=== PATIENT | female | born 1975 | race Caucasian/White ===

== ENCOUNTER 2016-06-24 11:59 | Outpatient (CLI) ==
[2015-08-26 19:31] VITALS: BMI 24.7
[2016-06-24 13:15] LABS: BASOPHILS # (AUTO) 0.1 K/uL (0-0.2); BASOPHILS % (AUTO) 0.7 % (0.0-3.0); EOSINOPHILS # (AUTO) 0.2 K/ul (0.0-0.7); EOSINOPHILS % (AUTO) 2.2 % (0.0-7.0); HEMATOCRIT 39.1 % (37.0-47.0); HEMOGLOBIN 13.7 g/dl (12.0-16.0); IMMATURE GRANULOCYTE % (AUTO) 0.2 % (0.0-5.0); LYMPHOCYTES # (AUTO) 1.7 K/uL (0.60-3.4); LYMPHOCYTES % (AUTO) 19.1 (10.0-50.0); MEAN CORPUSCULAR HEMOGLOBIN 31.8 pg (27.0-31.0); MEAN CORPUSCULAR VOLUME 90.7 fl (81.0-99.0); MONOCYTES # (AUTO) 0.5 K/uL (0.4-2.0); MONOCYTES % (AUTO) 5.3 (0-10); NEUTROPHILS # (AUTO) 6.4 K/ul (2.0-6.9); NEUTROPHILS % (AUTO) 72.5; PLATELET COUNT 159 10^3/uL (140-440); RED BLOOD COUNT 4.31 10^6/ul (4.20-5.40); WHITE BLOOD COUNT 8.76 K/ul (4.6-10.2)
[2016-06-24 13:51] LABS: ALBUMIN 4.1 g/dL (3.4-5.0); ALBUMIN/GLOBULIN RATIO 1.32; ANION GAP 14.2; BILIRUBIN,TOTAL 0.29 mg/dL (0.00-1.20); BUN/CREATININE RATIO 12.35; CALCIUM 9.6 mg/dL (8.2-10.2); CHOL/HDL RATIO 3.8 (4.5-5.5); CREATININE 0.89 mg/dL (0.60-1.30); POTASSIUM 4.2 mmol/L (3.5-5.10); TOTAL PROTEIN 7.2 g/dL (6.4-8.2)
--- NOTE | 2016-06-25 14:08 | MRI ---
EXAM: Lumbar spine MRI without contrast. HISTORY: Back pain. COMPARISON: CT abdomen and pelvis 11/27/2015. TECHNIQUE: Multiplanar, multisequence MR images were acquired of the lumbar spine without contrast. FINDINGS: Five lumbar-type vertebra are present. There is minor lumbar levoscoliosis centered at L3 -4 and there is 2 mm rightward translation of L5 with respect L4. Alignment on the sagittal section s is near anatomic. The lumbar vertebra are normal in height and intrinsic bone marrow signal. Ther e is minor lumbar ventral spondylosis with reactive marrow changes along the anterior superior endpl ate of L3. Conus medullaris ends at L1 has normal signal intensity. The visualized liver, spleen and kidneys are unremarkable. T12-L1: The intervertebral disc is normal. L1-2: The intervertebral disc is normal. L2-3: The intervertebral disc is normal. There is mild bilateral hypertrophic facet arthropathy an d ligamentum flavum hypertrophy and a tiny subchondral cyst is present along the posterior left face t joint. There is no central canal stenosis or foraminal stenosis. L3-4: The intervertebral disc is normal. There is mild bilateral facet arthropathy and ligamentum flavum hypertrophy. L4-5: The intervertebral disc is normal. There is mild to moderate bilateral hypertrophic facet ar thropathy and ligamentum flavum hypertrophy. This narrows the posterolateral thecal sac bilaterally and causes minor bilateral foraminal stenosis. L5-S1: There is a minimal posterior disc bulge and mild bilateral facet arthropathy without foramin al stenosis. IMPRESSION: 1. Mild and mild to moderate lumbar facet arthropathy L2-3 to L5-S1. 2. No lumbar disc herniations, pars interarticularis defects or spinal stenosis.
== END 2016-06-24 12:00 | disposition home or self-care (01) ==
LOC: RAD 11:59
PROVIDERS: ATTEND Nurse Practitioner Family
DX: M54.9 Dorsalgia, unspecified (principal); F32.9 Major depressive disorder, single episode, unspecified; Z00.00 Encounter for general adult medical examination without abnormal findings; Z72.0 Tobacco use
CPT/HCPCS: 36415; 80053; 80061; 84443; 85025

== ENCOUNTER 2016-08-22 08:17 | Emergency (ER) ==
[2016-08-22 08:17] VITALS: BMI 24.7
[2016-08-22 08:21] VITALS: BP 116/77; TEMP 98.2
--- NOTE | 2016-08-22 08:49 | ED.PDOC ---
General ED Provider: Dr. THO MULLER JR Chief Complaint: Rash Stated Complaint: SEEN AT CLINIC AND WAS TREATED BUT NO LITTLE TO NO IMPROVEMENT. [ End ]2 weeks 98.2 71 20 98% 116/77. TUBAL, BLADDER SLING. [ End ]. anx. Yes: POISON JULY Time Seen by Physician: 08:48 Mode of Arrival: Walk-In Information Source: Patient Exam Limitations: No limitations [facility] [address] Nursing and Triage Documentation Reviewed and Agree: No Review of Systems - Review Of Systems Constitutional: Reports: Malaise Eyes: Reports: Pain Ears, Nose, Mouth, Throat: Reports: No symptoms Respiratory: Reports: No symptoms Cardiac: Reports: No symptoms, Chest pain (itching between breasts) GI: Reports: No symptoms : Reports: No symptoms Musculoskeletal: Reports: No symptoms Skin: Reports: Lesions, Rash (few vesicles red raised areas urticaria) Neurological: Reports: No symptoms Endocrine: Reports: No symptoms Hematologic/Lymphatic: Reports: No symptoms All Other Systems: Other Past Medical History - Past Medical History Endocrine: Reports: None Cardiovascular: Reports: None Respiratory: Reports: None Hematological: Reports: None Gastrointestinal: Reports: None Genitourinary: Reports: None Neuro/Psych: Reports: Anxiety Musculoskeletal: Reports: None Cancer: Reports: None Last Menstrual Period: N/A - Surgical History General Surgical History: Reports: Tubal ligation (TUBAL, BLADDER SLING) - Family History Family History: Reports: Unknown - Social History Smoking Status: Current every day smoker, Light tobacco smoker Hx Substance Use: No Alcohol Screening: None - Immunizations Tetanus Shot up to Date: Yes Physical Exam - Physical Exam Appearance: Well-appearing Pain Distress: Moderate Eyes: REINA, EOMI, Conjunctiva clear ENT: Ears normal, Nose normal, Oropharynx normal Neck: Supple Respiratory: Airway patent, Breath sounds clear, Breath sounds equal, Respirations nonlabored Cardiovascular: RRR, Pulses normal, No rub, No murmur GI/: Soft, Nontender, No masses, Bowel sounds normal, No Organomegaly Musculoskeletal: Normal strength, ROM intact, No edema, No calf tenderness Skin: Warm, Dry (red rash, most obvious at and below waistline, but also arms face chest and some on legs) Neurological: Sensation intact, Motor intact, Reflexes intact, Cranial nerves intact, Alert, Oriented Psychiatric: Affect appropriate, Mood appropriate Critical Care Note - Critical Care Note Total Time (mins): 0 Course - Course Orders, Labs, Meds: Orders Category Date Time Status Methylprednisolone Sod Succ/Pf [Solu-Medrol 125 mg] MEDS 08/22/16 09:02 Discontinued 125 mg IM ONCE STA Medications Discontinued Medications Generic Name Dose Route Start Last Admin Trade Name Reji PRN Reason Stop Dose Admin Methylprednisolone Sodium Succinate 125 mg 08/22/16 09:02 08/22/16 09:13 Solu-Medrol 125 Mg IM 08/22/16 09:03 125 mg ONCE STA Administration Vital Signs: Temp Pulse Resp BP Pulse Ox 08/22/16 08:17 98.2 F 71 20 116/77 98 Departure - Departure Time of Disposition: 09:03 Disposition: HOME SELF-CARE Discharge Problem: Rhus dermatitis Instructions: Poison July (ED), Cold Compress or Soak (ED) Condition: Good Pt referred to PMD for follow-up: Yes Additional Instructions: repeat steroid injection avoid sugar and fried food with steroids(affects hunger) may begin prednisone taper if rash returns recheck PMD one week if not resolved may use Benadryl for itching(causes drowsiness) Prescriptions: Diphenhydramine HCl [Benadryl] 25 mg PO QID #30 capsule Prednisone 20 mg PO DIRECTED #50 tablet Allergies/Adverse Reactions: Allergies codeine Allergy (Verified 08/22/16 08:23) Home Medications: Ambulatory Orders Sertraline HCl [Zoloft] 150 mg PO DAILY 08/26/15 Diphenhydramine HCl [Benadryl] 25 mg PO QID #30 capsule 08/22/16 Prednisone 20 mg PO DIRECTED #50 tablet 08/22/16
[2016-08-22] MEDS ORDERED: SOLU-MEDROL 125 MG IM STA (09:02)
== END 2016-08-22 09:25 | disposition home or self-care (01) ==
LOC: ED 08:17
DX: L23.7 Allergic contact dermatitis due to plants, except food (principal); F17.210 Nicotine dependence, cigarettes, uncomplicated
CPT/HCPCS: 96372; 99282

== ENCOUNTER 2017-03-04 16:14 | Outpatient (CLI) | END 2017-03-04 16:15 | disposition home or self-care (01) | LOC: LAB 16:14 | PROVIDERS: ATTEND Emergency Medicine | DX: J10.1 Influenza due to other identified influenza virus with other respiratory manifestations (principal) | CPT/HCPCS: 87502; 87651 ==

== ENCOUNTER 2017-06-09 14:14 | Inpatient (IN) ==
[2017-06-09] MEDS ORDERED: SODIUM CHLORIDE 1,000 ML IV STA (15:29)
[2017-06-09] MEDS ORDERED: ZOFRAN 4 MG/2 ML IVP STA (15:32)
--- NOTE | 2017-06-09 15:33 | ED.PDOC ---
General ED Provider: Dr. MARY PULIDO Chief Complaint: Nausea/Vomiting Stated Complaint: has been experiencing severe abdominal cramping with bloody watery diarrhea. Hx of Ulcerative Colitis. No recent treatment other than Bentyl and carafate. Extremely thirsty. has been symptomatic for several years. Underwent Colonoscopy 5 yrs ago and dx obtained. No chronic therapy. Has not been on systemic anti inflamatory meds(sulfazaline)or immune modulation therapy(Imuran or methotrexate). Is employed in [employer]. Time Seen by Physician: 14:40 Mode of Arrival: Walk-In Information Source: Patient Exam Limitations: No limitations [facility] T[facility] Documentation Reviewed and Agree: Yes Reviewed sepsis parameters & appropriate labs ordered?: Yes System Inflammatory Response Syndrome: Not Applicable Sepsis Protocol: For patient's 13 years and over: Temp is 96.8 and below OR 101 and greater Pulse >90 BPM Resp >20/minute Acutely Altered Mental Status Are patient's symptoms suggestive of a new infection, such as: -Pneumonia -Skin, Soft Tissue -Endocarditis -UTI -Bone, Joint Infection -Implantable Device -Acute Abdominal Infection -Wound Infection -Meningitis -Blood Stream Catheter Infection -Unknown System Inflammatory Response Syndrome: Not Applicable GI Complaint Exam - Abdominal Pain Complaint/Exam Onset: Sudden Symptoms Are: Still present Timing: Intermittent Initial Severity: Moderate Current Severity: Moderate Location of Pain: RLQ, LLQ, Suprapubic Radiates To: Denies: Chest, Back, Flank Character: Reports: Dull, Aching, Cramping Aggravating: Reports: Food - Vomiting/Diarrhea Complaint/Exam Onset/Duration: 5 days Symptoms Are: Still present Episodes of Diarrhea Over Last 24 Hours: 5 Initial Severity: Moderate Current Severity: Severe Character of Vomiting: Reports: Non-bilious Character of Diarrhea: Reports: Bloody, Watery Aggravating: Reports: Food, Liquids Alleviating: Reports: None Associated Signs and Symptoms: Reports: Hematemesis, Abdominal pain, Cramping Related Surgical History: Reports: None (Colonoscopy) Abdominal Findings: Absent: Pulsatile mass, Rebound tenderness, Peritoneal signs Review of Systems - Review Of Systems Constitutional: Reports: No symptoms Eyes: Reports: No symptoms Ears, Nose, Mouth, Throat: Reports: No symptoms Respiratory: Reports: No symptoms Cardiac: Reports: No symptoms, Lightheadedness GI: Reports: Blood streaked bowels, Diarrhea, Poor fluid intake, Rectal bleeding : Reports: No symptoms Musculoskeletal: Reports: No symptoms Skin: Reports: No symptoms Neurological: Reports: No symptoms Endocrine: Reports: No symptoms Hematologic/Lymphatic: Reports: No symptoms All Other Systems: Reviewed and Negative Past Medical History - Past Medical History Previously Healthy: Yes Endocrine: Reports: None Cardiovascular: Reports: None Respiratory: Reports: None Hematological: Reports: None Gastrointestinal: Reports: None, Other (ulcerative colitis) Genitourinary: Reports: None Neuro/Psych: Reports: Anxiety Musculoskeletal: Reports: None Cancer: Reports: None Last Menstrual Period: now - Surgical History General Surgical History: Reports: Tubal ligation (TUBAL, BLADDER SLING) - Family History Family History: Reports: Unknown - Social History Smoking Status: Current every day smoker, Light tobacco smoker Hx Substance Use: No Alcohol Screening: None Physical Exam - Physical Exam Appearance: Ill-appearing, Well-nourished Ill-appearing: Moderate Pain Distress: Mild Eyes: REINA, EOMI, Conjunctiva clear ENT: Ears normal, Nose normal, Oropharynx normal Respiratory: Airway patent, Breath sounds clear, Breath sounds equal, Respirations nonlabored Cardiovascular: RRR, Pulses normal, No rub, No murmur GI/: Soft, No masses, Bowel sounds normal, No Organomegaly, Tender, Bowel sounds hypoactive Musculoskeletal: Normal strength, ROM intact, No edema, No calf tenderness Skin: Warm, Dry, Normal color Neurological: Sensation intact, Motor intact, Reflexes intact, Cranial nerves intact, Alert, Oriented Psychiatric: Affect appropriate, Mood appropriate, Anxious Critical Care Note - Critical Care Note Total Time (mins): 30 Course - Course Hematology/Chemistry: 06/11/17 04:30 06/11/17 04:30 Orders, Labs, Meds: Lab Review 06/09/17 06/09/17 15:40 15:40 WBC 10.79 H RBC 4.17 L Hgb 13.3 Hct 37.1 MCV 89.0 MCH 31.9 H MCHC 35.8 H RDW Coeff of Yadira 12.2 Plt Count 137 L Immature Gran % (Auto) 0.3 Neut % (Auto) 84.3 Lymph % (Auto) 6.0 L Tift % (Auto) 8.6 Eos % (Auto) 0.4 Baso % (Auto) 0.4 Immature Gran # (Auto) 0.0 Neut # (Auto) 9.1 H Lymph # (Auto) 0.7 Tift # (Auto) 0.9 Eos # (Auto) 0.0 Baso # (Auto) 0.0 Sodium 138 Potassium 3.1 L Chloride 103 Carbon Dioxide 22 Anion Gap 16.1 BUN 8 Creatinine 0.74 Estimated GFR (MDRD) 85.00 BUN/Creatinine Ratio 10.81 Glucose 79 Calcium 8.9 Total Bilirubin 0.5 AST 15 ALT 13 Alkaline Phosphatase 53 Total Protein 6.7 Albumin 3.4 Globulin 3.3 Albumin/Globulin Ratio 1.03 Orders Category Date Time Status ADMIT PATIENT INPATIENT .TO [facility] (NON-MONITORED ADMISSION 06/09/17 17: 42 Completed BED) ACTIVITY .Up ad [place] CARE 06/09/17 17:32 Active GIVE HS SNACK 2100 CARE 06/09/17 17:34 Active INTAKE & OUTPUT Q8HR CARE 06/09/17 17:31 Active NPO REMINDER: IMAGING ONCE CARE 06/09/17 15:31 Completed VITAL SIGNS Q8HR CARE 06/09/17 17:32 Completed HS SNACK DIETARY 06/09/17 Dinner Completed IV [ED IV/MEDIPORT/POWERPORT] .ONCE EMERGENCY 06/09/17 15:30 Active BASIC METABOLIC PANEL DAILY@0600 LAB 06/10/17 06:00 Completed BASIC METABOLIC PANEL DAILY@0600 LAB 06/11/17 04:30 Completed CBC W/ AUTO DIFF DAILY@0600 LAB 06/10/17 06:00 Completed CBC W/ AUTO DIFF DAILY@0600 LAB 06/11/17 04:30 Completed CBC W/ AUTO DIFF Stat LAB 06/09/17 15:40 Completed CMP [COMPREHENSIVE METABOLIC PANEL] Stat LAB 06/09/17 15:40 Completed 0.9 % Sodium Chloride [Saline Flush] MEDS 06/09/17 15:31 Discontinued 1 syr IVF PRN PRN Methylprednisolone Sod Succ/Pf [Solu-Medrol 125 mg] MEDS 06/09/17 17:29 Discontinued 125 mg IM ONCE STA Metronidazole/Sodium Chloride [Flagyl 500 mg/100 ml] MEDS 06/09/17 17:28 Discontinued 500 mg Premix 100 ml Ns 1 bag IV ONCE Ondansetron HCl/Pf [Zofran 4 mg/2 ml] MEDS 06/09/17 15:32 Discontinued 4 mg IVP ONCE STA Potassium Chloride [Potassium Chloride Premix Run] 10 MEDS 06/09/17 17:30 Discontinued meq Premix 100 ml Water 1 bag IV ONCE Sodium Chloride 0.9% [Sodium Chloride] 1,000 ml MEDS 06/09/17 15:29 Discontinued IV BOLUS RESUSCITATION STATUS Routine OTHERS 06/09/17 17:[address] ABDOMEN/PELVIS W/WO CONTRAS Stat RADS 06/09/17 15:31 Completed Medications Discontinued Medications Generic Name Dose Route Start Last Admin Trade Name Reji PRN Reason Stop Dose Admin Acetaminophen 1,000 mg 06/10/17 14:09 06/10/17 16:01 Tylenol PO 06/10/17 14:10 1,000 mg ONCE STA Administration Acetaminophen 650 mg 06/11/17 13:02 06/11/17 13:05 Tylenol PO 06/11/17 13:03 650 mg ONCE ONE Administration Sodium Chloride 1,000 mls @ 500 mls/hr 06/09/17 15:29 06/09/17 16:02 Sodium Chloride IV 06/09/17 17:28 500 mls/hr BOLUS STA Administration Metronidazole 500 mg/ Sodium 100 mls @ 100 mls/hr 06/09/17 17:28 06/09/17 19: 20 Chloride IV 06/09/17 18:27 100 mls/hr ONCE STA Administration Potassium Chloride 10 meq/ 100 mls @ 100 mls/hr 06/09/17 17:30 06/09/17 21:03 Sterile Water IV 06/09/17 18:29 100 mls/hr ONCE STA Administration Sodium Chloride 1,000 mls @ 50 mls/hr 06/09/17 22:30 06/11/17 13:15 Sodium Chloride IV Not Given .Q20H MANJU Metronidazole 500 mg/ Sodium 100 mls @ 100 mls/hr 06/10/17 09:00 06/12/17 04: 31 Chloride IV 100 mls/hr Q8HR MANJU Administration Lorazepam 1 mg 06/10/17 23:54 06/10/17 23:57 Ativan PO 06/10/17 23:55 1 mg ONCE STA Administration Methylprednisolone Sodium Succinate 125 mg 06/09/17 17:29 06/09/17 18:03 Solu-Medrol 125 Mg IM 06/09/17 17:30 125 mg ONCE STA Administration Methylprednisolone Sodium Succinate 80 mg 06/10/17 09:00 06/11/17 05:25 Solu-Medrol 125 Mg IVP Not Given Q8HR MANJU Ondansetron HCl 4 mg 06/09/17 15:32 06/09/17 16:01 Zofran 4 Mg/2 Ml IVP 06/09/17 15:33 4 mg ONCE STA Administration Potassium Chloride 80 meq 06/09/17 22:18 06/09/17 22:21 K-Dur PO 06/09/17 22:19 80 meq ONCE STA Administration Prednisone 10 mg 06/11/17 09:00 06/12/17 09:13 Prednisone PO 10 mg BIDWM MANJU Administration Sertraline HCl 150 mg 06/10/17 09:00 06/12/17 09:12 Zoloft PO 150 mg DAILY MANJU Administration Sodium Chloride 1 syr 06/09/17 15:31 Saline Flush IVF PRN PRN To flush IV Vital Signs: Temp Pulse Resp BP Pulse Ox 06/09/17 14:15 99.1 F 84 20 108/70 99 Departure - Departure Time of Disposition: 17:50 Disposition: ADMITTED INPATIENT Discharge Problem: Inflammatory bowel disease, Inflammatory bowel disease (ulcerative colitis), Hypokalemia, gastrointestinal losses Condition: Good Pt referred to PMD for follow-up: Yes (Discussed with Dr Patel who agrees to accept patient for admission;) IPMP verified?: No Allergies/Adverse Reactions: Allergies codeine Allergy (Verified 06/09/17 14:26) Home Medications: Ambulatory Orders Sertraline HCl [Zoloft] 150 mg PO DAILY 08/26/15 Sertraline HCl [Zoloft] 150 mg PO d 06/20/17 Disposition Discussed With: Patient, Family (Recommend admitting to hospital for definitive therapy)
--- NOTE | 2017-06-09 17:05 | CT ---
EXAM: CT abdomen with and without contrast. CT pelvis with and without contrast. HISTORY: Generalized abdominal pain, diarrhea, bloody stool. COMPARISON: 11/27/2015. TECHNIQUE: Multiple axial images of the abdomen and pelvis were obtained prior to and following intr avenous administration of 75 mL of Omnipaque 350, low osmolar. Images reformatted in the sagittal an d coronal plane. FINDINGS: The lung bases are clear. Degenerative changes present in the spine. The liver, gallbladder, pancreas, spleen, adrenal glands, and kidneys are unremarkable. There is moderate wall thickening in the colon from the cecum to the rectum with adjacent edema. The re is mild to moderate fluid distension of multiple small bowel loops. The terminal ileum is collaps ed, and there is submucosal fat deposition. No pneumatosis seen. No free air identified. There is a small amount of free fluid. There may be a normal appendix. Left adnexal cystic lesion measures approximately 5 x 3.8 x 4.8 cm. Uterus demonstrates normal conto ur. Bladder is collapsed. Nonenlarged lymph nodes are present in the abdomen and pelvis IMPRESSION: 1. Moderate acute pancolitis. Mild to moderate fluid distension of the small bowel with suspected c hronic inflammation of the terminal ileum. Consider inflammatory bowel disease. 2. Left adnexal cyst. Follow-up pelvic ultrasound recommended.
[2017-06-09] MEDS ORDERED: FLAGYL 500 MG/100 ML 500 MG in PREMIX 100 ML NS 1 BAG IV STA (17:28)
[2017-06-09] MEDS ORDERED: SOLU-MEDROL 125 MG IM STA (17:29)
[2017-06-09] MEDS ORDERED: POTASSIUM CHLORIDE PREMIX RUN 10 MEQ in PREMIX 100 ML WATER 1 BAG IV STA (17:30)
[2017-06-09 18:40] VITALS: BMI 25.0
[2017-06-09] MEDS ORDERED: FLAGYL 500 MG/100 ML 100 ML IV ONE (19:04)
[2017-06-09] MEDS ORDERED: POTASSIUM CHLORIDE PREMIX RUN 100 ML IV ONE (20:59)
[2017-06-09] MEDS ORDERED: K-DUR PO STA ×2 (22:10→22:18)
[2017-06-09] MEDS ORDERED: K-DUR ONE (22:15)
[2017-06-10] MEDS ORDERED: NON-FORMULARY MEDICATION (Sertraline Hcl [Zoloft] 150 MG) PO SCH (09:00)
[2017-06-10] MEDS: SOLU-MEDROL 125 MG IVP SCH ×3 (10:00→21:31)
[2017-06-10] MEDS: ZOLOFT PO SCH (10:00)
[2017-06-10] MEDS: FLAGYL 500 MG/100 ML 500 MG in PREMIX 100 ML NS 1 BAG IV SCH ×3 (10:00→21:32)
[2017-06-10] MEDS ORDERED: TYLENOL PO STA (14:09)
[2017-06-10] MEDS: SODIUM CHLORIDE 1,000 ML IV SCH ×2 (21:24→21:32)
[2017-06-10] MEDS ORDERED: ATIVAN PO STA (23:54)
[2017-06-11] MEDS: FLAGYL 500 MG/100 ML 500 MG in PREMIX 100 ML NS 1 BAG IV SCH ×3 (05:24→22:12)
[2017-06-11] MEDS: SOLU-MEDROL 125 MG IVP SCH (05:25)
[2017-06-11] MEDS: PREDNISONE PO SCH ×2 (09:35→16:42)
[2017-06-11] MEDS: ZOLOFT PO SCH (09:35)
[2017-06-11] MEDS ORDERED: TYLENOL PO ONE (13:02)
[2017-06-11] MEDS: SODIUM CHLORIDE 1,000 ML IV SCH ×2 (13:05→13:15)
[2017-06-12] MEDS: FLAGYL 500 MG/100 ML 500 MG in PREMIX 100 ML NS 1 BAG IV SCH (04:31)
[2017-06-12] MEDS: ZOLOFT PO SCH (09:12)
[2017-06-12] MEDS: PREDNISONE PO SCH (09:13)
[2017-06-12 11:02] VITALS: BP 88/55; TEMP 97.7
--- NOTE | 2017-06-12 22:28 | PCM.HOSP ---
- Initial Hospital Care [id number] 70 Minutes Bedside ([id number]): 06/09 - Subsequent Care [id number] 35 Minutes per Day ([id number]): 06/10. 06/11 - Hospital Discharge [id number] More than 30 Minutes ([id number]): 06/12
--- NOTE | 2017-06-21 11:01 | HP ---
DATE OF SERVICE: 06/09/17 CHIEF COMPLAINT: Abdominal pain, nausea, vomiting. HISTORY OF PRESENT ILLNESS: This is a 42 year old female, Maricarmen Wagner, with a history of Crohn's disease has not been on any immunotherapies, came to the emergency room with cough, nausea, vomiting and not able to keep anything down. Nausea started two days ago, vomited four emesis. Has been taking Bentyl , Carafate. The patient has ulcerative colitis. No medications. Diarrhea, watery. Whatever she eats is passing through and not able to keep anything down. She saw Dr. Wren in the emergency room. White count was 10,000 with a left shift. Potassium 3.1. CT of the abdomen and pelvis showed the inflammatory process of acute pancolitis. As the patient was having the intractable nausea, vomiting and not able to keep anything down, she was admitted to the hospital for the IV fluids and steroids and antibiotic treatment. REVIEW OF SYSTEMS: CONSTITUTIONAL: Weakness, tiredness. No fever, no chills. HEENT: Normal. ENDOCRINE: No weight gain; no weight loss. CVS: No chest pain. No PND, no orthopnea. No shortness of breath. No PND, no orthopnea. RESPIRATORY: No cough, no congestion. No hemoptysis. GI: Nausea,vomiting. No abdominal pain. No melena. : No hematuria. No polyuria. MUSCULOSKELETAL: No joint swelling. PSYCHIATRIC: Not anxious. No depression. No suicidal thoughts. No homicidal thoughts. SKIN: Intact, no open lesions. PAST MEDICAL HISTORY: History of hypotension GERD Irritable bowel syndrome Ulcerative colitis, has not been on any medications Anxiety Nicotine use PAST SURGICAL HISTORY: Bladder sling surgery Tubal ligation Anxiety disorder PERSONAL HISTORY: Tobacco use. FAMILY HISTORY: Significant for lung cancer and thyroid cancer. MEDICATIONS: Zoloft 150 mg daily ALLERGIES: Codeine. PHYSICAL EXAMINATION: GENERAL: Sick looking lady lying in the bed. V/S: Blood pressure 108/70, respiratory rate 20, heart rate 84, temperature 99.1 , saturation 99. HEENT: Atraumatic, normocephalic. No scleral icterus. Pallor positive. Mucosa dry. NECK: Supple. No JVD, no bruit. No lymphadenopathy. No thyromegaly. HEART: S1, S2 normal. No murmur. No cyanosis or clubbing. No ascites. LUNGS: Clear to auscultation. No rales or rhonchi. ABDOMEN: Soft, discomfort all over. Bowel sounds are hyperactive. No CVA tenderness. No rigidity or guarding. EXTREMITIES: No pedal edema. No cyanosis or clubbing MUSCULOSKELETAL: Normal joints, no swelling. NEUROLOGIC: Normal. SKIN: Intact; no open lesions. LYMPHATIC: No lymph nodes palpable. LABS: Sodium 138, potassium 3.1, chloride 103, bicarb 22, BUN 8, creatinine 0.74, glucose 79, white count 10.79, hemoglobin 13.3, hematocrit 7.1, platelet count 137. ASSESSMENT: 1. ACUTE ULCERATIVE COLITIS 2. GASTROENTERITIS 3. INTRACTABLE NAUSEA AND VOMITING 4. HYPOKALEMIA 5. HISTORY OF HYPOTENSION 6. GERD 7. ANXIETY DISORDER PLAN: 1. Admit the patient to the regular floor. 2. CBC, CMP today and daily. 3. IV fluids. 4. Solu-Medrol. 5. Flagyl IV every 8 hours. 6. Daily I & O's. TIME SPENT: MORE THAN 65 to 70 minutes for the admission. SIRIA
--- NOTE | 2017-06-21 11:22 | PN ---
DATE OF SERVICE: 06/10/17 SUBJECTIVE: The patient was admitted with gastroenteritis and ulcerative colitis. Abdominal cramping is better. She wants to eat some food. REVIEW OF SYSTEMS: CONSTITUTIONAL: No fever, no chills. HEENT: Normal. ENDOCRINE: No weight gain, no weight loss. CVS: No angina symptoms. No CHF symptoms. No palpitations. No atypical chest pain for CAD. No shortness of breath. No PND, no orthopnea. RESPIRATORY: No cough, no hemoptysis. GI: No nausea, no vomiting. Abdominal pain. : No hematuria. No polyuria. MUSCULOSKELETAL: No joint swelling. PSYCHIATRIC: Not anxious. No depression. No suicidal thoughts. No homicidal thoughts. SKIN: Intact. No rash. PHYSICAL EXAMINATION: V/S: Blood pressure 88/54, respiratory rate 18, heart rate 55, temperature 97.6 , saturation 98. HEENT: Normocephalic, atraumatic. Mucosa dry. Pallor positive. No icterus. NECK: Supple. No JVD, no carotid bruit. No lymphadenopathy. LUNGS: Clear to auscultation. No rales or rhonchi. HEART: S1, S2 normal. No S3. No murmur, gallop or regurgitation. ABDOMEN: Soft, discomfort all over. Bowel sounds hyperactive. No rigidity. No rebound or guarding. No CVA tenderness. EXTREMITIES: No pedal edema. No clubbing or cyanosis MUSCULOSKELETAL: No joint swelling. NEUROLOGIC: Awake, alert, oriented times three. No focal deficit. LYMPHATIC: No lymph nodes palpable. SKIN: Intact. LABS: White count 9.03, hemoglobin 13.6, hematocrit 38.7, platelet count 165, sodium 139, potassium 4.1, chloride 107, bicarb 19, BUN 7, creatinine 0.71, glucose 123. ASSESSMENT: 1. ACUTE GASTROENTERITIS 2. HYPOKALEMIA 3. ULCERATIVE COLITIS, NOT BEEN ON ANY MEDICATION 4. ANXIETY PLAN: 1. Solu-Medrol 80 every 8 hours. 2. Flagyl 500 mg every 8 hours. 3. Clear liquid diet, advance as tolerated. TIME SPENT: More than 35 minutes MTDD
--- NOTE | 2017-06-21 11:28 | DS ---
DATE OF SERVICE: 06/12/17 FINAL DIAGNOSIS: 1. ACUTE GASTROENTERITIS WITH FLARE OF ULCERATIVE COLITIS, NOT BEEN ON ANY MEDICATION 2. HYPOKALEMIA 3. DEHYDRATION WHICH HAS IMPROVED 4. HISTORY OF TUBAL LIGATION 5. BLADDER SLING SURGERY 6. NICOTINE USE 7. DEPRESSION - THE PATIENT IS ON ZOLOFT DISCHARGE INSTRUCTIONS: 1. Discharge the patient home. 2. Followup at the [facility] within 10 days. MEDICATIONS AT DISCHARGE: 1. Continue Zoloft NEW PRESCRIPTIONS: 1. Flagyl 500 mg q.8hr 2. Prednisone 10 mg twice a day DIET INSTRUCTIONS: Soft diet, increase hydration ACTIVITY: As the patient tolerates. SMOKING: Current every day smoker - Smoking cessation advised. DISEASE SPECIFIC EDUCATION: Ulcerative colitis Risk of colon cancer Surveillance colonoscopy discussed, verbalized understanding HOSPITAL COURSE: This is a 42-year-old female with a history of ulcerative colitis, has not followed with GI specialist or been on immunomodulators for almost a couple of years. She was trying to lose weight, started eating greens, began to have abdominal pain, cramping, not able to keep anything down with nausea and vomiting, clear watery diarrhea. She came to the emergency room and seen by Dr. Wren. Potassium was 3.1, CT scan showed colitis. Admitted to the hospital, started on IV Flagyl, steroids and pain medication which did help the patient to calm down and started feeling some better. Clear liquids started which she tolerated well. Advanced diet to soft diet which she tolerated well. Up and about walking and did not have any problems. Regular bowel movement. Explained about the importance of going to the GI and needing disease modifying medications for the ulcerative colitis as the ulcerative colitis of more than 10 years, risk of colon cancer, strictures and complications increased. She verbalized understanding and promised to keep followup at the [facility]. TIME SPENT: MORE THAN 60 MINUTES MTDD
--- NOTE | 2017-06-21 11:34 | PN ---
DATE OF SERVICE: 06/11/17 SUBJECTIVE: The patient was able to tolerate the clear liquids. The diarrhea is now a little bit better. No more nausea or vomiting. Discontinued the steroids because they are making her not sleep good. REVIEW OF SYSTEMS: CONSTITUTIONAL: No fever, no chills. HEENT: Normal. ENDOCRINE: No weight gain, no weight loss. CVS: No angina symptoms. No CHF symptoms. No palpitations. No atypical chest pain for CAD. No shortness of breath. No PND, no orthopnea. RESPIRATORY: No cough, no hemoptysis. GI: No nausea, no vomiting. No abdominal pain. : No hematuria. No polyuria. MUSCULOSKELETAL: No joint swelling. PSYCHIATRIC: Not anxious. No depression. No suicidal thoughts. No homicidal thoughts. SKIN: Intact. No rash. PHYSICAL EXAMINATION: V/S: Blood pressure 102/66, respiratory rate 20, heart rate 62, temperature 97.5 , saturation is 97. HEENT: Normocephalic, atraumatic. Mucosa dry. Pallor positive. No icterus. NECK: Supple. No JVD, no carotid bruit. No lymphadenopathy. LUNGS: Clear to auscultation. No rales or rhonchi. HEART: S1, S2 normal. No S3. No murmur, gallop or regurgitation. ABDOMEN: Soft, nontender. Bowel sounds active. No rigidity. No rebound or guarding. No CVA tenderness. EXTREMITIES: No pedal edema. No clubbing or cyanosis MUSCULOSKELETAL: No joint swelling. NEUROLOGIC: Awake, alert, oriented times three. No focal deficit. LYMPHATIC: No lymph nodes palpable. SKIN: Intact. LABS: White count 8.93, hemoglobin 12.0, hematocrit 33.5, platelet count 139, sodium 141, potassium 3.8, chloride 110, bicarb 22, BUN 8, creatinine 0.66, sugar 138. ASSESSMENT: 1. ACUTE GASTROENTERITIS 2. SEVERE HYPOKALEMIA, WHICH IS BETTER 3. ULCERATIVE COLITIS, NOT ON ANY MEDICATIONS 4. NICOTINE USE PLAN: 1. Prednisone 10 mg q.12hr 2. Continue Flagyl IV. 3. Soft diet. 4. Encourage activity. 5. No DVT prophylaxis because of the activity. TIME SPENT: More than 35 minutes MTDD
== END 2017-06-12 14:10 | disposition home or self-care (01) | DRG 392 ==
LOC: ED 14:14 → MEDSURG B 17:43
PROVIDERS: ADMIT Emergency Medicine; ATTEND Emergency Medicine
DX: K52.9 Noninfective gastroenteritis and colitis, unspecified (principal); K51.911 Ulcerative colitis, unspecified with rectal bleeding; E87.6 Hypokalemia; R63.1 Polydipsia; E86.0 Dehydration; I95.89 Other hypotension; F41.8 Other specified anxiety disorders; Z72.0 Tobacco use; Z79.899 Other long term (current) drug therapy; Z98.890 Other specified postprocedural states; Z98.51 Tubal ligation status
CPT/HCPCS: 36415; 80048; 80053; 85025; 87015; 87045; 87177; 87899; 96361; 96374; 96375; 99284

== ENCOUNTER 2018-09-27 14:33 | Inpatient (IN) ==
[2018-09-27] MEDS ORDERED: DILAUDID 1 MG/ML SYRINGE IM STA (15:02)
[2018-09-27] MEDS ORDERED: DECADRON 4 MG/ML SDV IM STA (15:03)
[2018-09-27] MEDS ORDERED: PHENERGAN 25 MG/ML VIAL IM STA (16:20)
[2018-09-27] MEDS ORDERED: K-DUR PO STA (17:07)
[2018-09-27] MEDS ORDERED: POTASSIUM CHLORIDE 10 MEQ/100 ML PREMIX 10 MEQ in PREMIX 100 ML WATER 1 BAG IV STA (17:07)
[2018-09-27] MEDS ORDERED: POTASSIUM CHLORIDE 10 MEQ/100 ML PREMIX 100 ML IV ONE (17:14)
--- NOTE | 2018-09-27 17:15 | CT ---
Exam: CT of the abdomen and pelvis without contrast History: Abdominal pain with ulcerative colitis Technique: [address] of the abdomen and pelvis without intravascular contrast FINDINGS: The lung bases are clear. No significant liver abnormality. The adrenals, pancreas and s pleen are unremarkable. The stomach and hiatus are unremarkable.The gallbladder appears normal.. Ci rcumferential thickening of the right and transverse colon with pericolonic inflammation. Thickening of the left and sigmoid colon to a lesser extent. Vascular structures appear normal. The appendix is normal. Trace pelvic fluid. Normal pelvic genitourinary structures. No perirectal inflammation. No acute f indings of the skeleton. Impression: 1. Right, transverse, left and sigmoid colonic thickening. Right and transverse pericolonic inflamm ation. The findings are consistent with colitis. 2. No bowel or urinary obstruction
--- NOTE | 2018-09-27 17:36 | ED.PDOC ---
General ED Provider: Dr. HILDA ESPOSITO Chief Complaint: Abdominal Pain Stated Complaint: 43 years old female with pmhx/o ulcerative colitis who has been unable to purchase her meds due to financial constraints present with a cramping abdominal pain and chronic loose stools some had been bloody. Time Seen by Physician: 14:45 (seen with abdullahi and gail ) Mode of Arrival: Walk-In Information Source: Patient Exam Limitations: No limitations Nursing and Triage Documentation Reviewed and Agree: Yes Does patient meet sepsis criteria?: No System Inflammatory Response Syndrome: Not Applicable Sepsis Protocol: For patient's 13 years and over: Temp is 96.8 and below OR 101 and greater Pulse >90 BPM Resp >20/minute Acutely Altered Mental Status Are patient's symptoms suggestive of a new infection, such as: -Pneumonia -Skin, Soft Tissue -Endocarditis -UTI -Bone, Joint Infection -Implantable Device -Acute Abdominal Infection -Wound Infection -Meningitis -Blood Stream Catheter Infection -Unknown GI Complaint Exam - Abdominal Pain Complaint/Exam Onset: Gradual Duration: weeks Symptoms Are: Still present Timing: Intermittent Initial Severity: Severe Current Severity: Moderate Location of Pain: Diffuse Character: Reports: Cramping Aggravating: Reports: None Alleviating: Reports: None Associated Signs and Symptoms: Denies: Diaphoresis, Fever, Cough, Chest pain, Dizziness, Back pain, Constipation, Blood in stool, Dysuria, Urinary frequency, Decreased urine output, Decreased appetite, Vaginal bleeding, Vaginal discharge , Nausea, Vomiting, Diarrhea, Sore throat, Decreased activity Related History: Reports: Similar episode AAA Risk Factors: Reports: None Cardiac Risk Factors: Reports: None Ectopic Risk Factors: Reports: None Ovarian Torsion Risk Factors: Reports: None Surgical Obstruction Risk Factors: Reports: None Related Surgical History: Reports: None Patient Rh Status: Unknown Abdominal Findings: Present: None Review of Systems - Review Of Systems Constitutional: Reports: No symptoms Eyes: Reports: No symptoms Ears, Nose, Mouth, Throat: Reports: No symptoms Respiratory: Reports: No symptoms Cardiac: Reports: No symptoms GI: Reports: Abdominal pain, Rectal bleeding : Reports: No symptoms Musculoskeletal: Reports: No symptoms Skin: Reports: No symptoms Neurological: Reports: No symptoms Endocrine: Reports: No symptoms Hematologic/Lymphatic: Reports: No symptoms All Other Systems: Reviewed and Negative Past Medical History - Past Medical History Previously Healthy: Yes Endocrine: Reports: None Cardiovascular: Reports: None Respiratory: Reports: None Hematological: Reports: None Gastrointestinal: Reports: None, Other (ulcerative colitis) Genitourinary: Reports: None Neuro/Psych: Reports: Anxiety Musculoskeletal: Reports: None Cancer: Reports: None Last Menstrual Period: n/a - Surgical History General Surgical History: Reports: Tubal ligation (TUBAL, BLADDER SLING) - Family History Family History: Reports: Unknown - Social History Smoking Status: Current every day smoker, Light tobacco smoker Hx Substance Use: No Alcohol Screening: None Physical Exam - Physical Exam Appearance: Well-appearing, No pain distress, Well-nourished Eyes: REINA, EOMI, Conjunctiva clear ENT: Ears normal, Nose normal, Oropharynx normal Respiratory: Airway patent, Breath sounds clear, Breath sounds equal, Respirations nonlabored Cardiovascular: RRR, Pulses normal, No rub, No murmur GI/: Soft, Nontender, No masses, Bowel sounds normal, No Organomegaly Musculoskeletal: Normal strength, ROM intact, No edema, No calf tenderness Skin: Warm, Dry, Normal color Neurological: Sensation intact, Motor intact, Reflexes intact, Cranial nerves intact, Alert, Oriented Psychiatric: Affect appropriate, Mood appropriate Interpretation - Radiology Interpretation Radiology Interpretation By: Radiologist Radiology Results: Positive (colitis) Physician Notification - Case Discussed Physician Notified: ryan Time of Notification: 17:40 Admit To: Inpatient Critical Care Note - Critical Care Note Total Time (mins): 0 Course - Course Hematology/Chemistry: 09/27/18 15:41 09/27/18 15:41 Orders, Labs, Meds: Lab Review 09/27/18 09/27/18 09/27/18 15:41 15:41 15:41 WBC 10.97 H RBC 4.12 L Hgb 12.9 Hct 36.2 L MCV 87.9 MCH 31.3 H MCHC 35.6 H RDW Coeff of Yadira 11.7 Plt Count 166 Immature Gran % (Auto) 0.5 Neut % (Auto) 73.7 Lymph % (Auto) 10.9 Towns % (Auto) 10.8 H Eos % (Auto) 3.6 Baso % (Auto) 0.5 Immature Gran # (Auto) 0.1 Neut # (Auto) 8.1 H Lymph # (Auto) 1.2 Towns # (Auto) 1.2 Eos # (Auto) 0.4 Baso # (Auto) 0.1 PT 11.5 H INR 1.15 APTT 28.7 Sodium 137.3 Potassium 2.48 L* Chloride 98.7 Carbon Dioxide 27.0 Anion Gap 14.08 BUN 6.6 L Creatinine 0.83 Estimated GFR (MDRD) 74.00 BUN/Creatinine Ratio 7.95 Glucose 110.9 H Calcium 8.69 Total Bilirubin 0.53 AST 16.3 ALT 14.8 Alkaline Phosphatase 65.7 Total Protein 6.55 Albumin 3.59 Globulin 2.96 Albumin/Globulin Ratio 1.21 Amylase 46.0 Lipase 25.9 Orders Category Date Time Status EKG-(ED ONLY) Stat CARDIO 09/27/18 17:07 Completed AMYLASE Stat LAB 09/27/18 15:41 Completed CBC W/ AUTO DIFF Stat LAB 09/27/18 15:41 Completed COMPREHENSIVE METABOLIC PANEL Stat LAB 09/27/18 15:41 Completed LIPASE Stat LAB 09/27/18 15:41 Completed PARTIAL THROMBOPLASTIN TIME Stat LAB 09/27/18 15:41 Completed PT WITH INR Stat LAB 09/27/18 15:41 Completed Dexamethasone 4 mg/ml Inj [Decadron 4 mg/ml Sdv] MEDS 09/27/18 15:03 Discontinued 10 mg IM ONCE STA Hydromorphone HCl [Dilaudid 1 mg/ml Syringe] MEDS 09/27/18 15:02 Discontinued 1 mg IM ONCE STA Potassium Chloride [K-Dur] MEDS 09/27/18 17:07 Discontinued 40 meq PO ONCE STA Potassium Chloride [Potassium Chloride Premix Run] 10 MEDS 09/27/18 17:07 Active meq Premix 100 ml Water 1 bag IV ONCE Potassium Chloride [Potassium Chloride Premix Run] 100 MEDS 09/27/18 17:14 Discontinued ml IV .STK-MED Promethazine HCl [Phenergan 25 mg/ml Vial] MEDS 09/27/18 16:20 Discontinued 50 mg IM ONCE STA CT ABDOMEN/PELVIS WO CONTRAST Stat RADS 09/27/18 16:06 Completed Medications Generic Name Dose Route Start Last Admin Trade Name Freq PRN Reason Stop Dose Admin Potassium Chloride 10 meq/ 100 mls @ 100 mls/hr 09/27/18 17:07 Sterile Water IV 09/27/18 18:06 ONCE STA Discontinued Medications Generic Name Dose Route Start Last Admin Trade Name Freq PRN Reason Stop Dose Admin Dexamethasone Sodium Phosphate 10 mg 09/27/18 15:03 09/27/18 15:19 Decadron 4 Mg/Ml Sdv IM 09/27/18 15:04 10 mg ONCE STA Administration Hydromorphone HCl 1 mg 09/27/18 15:02 09/27/18 15:18 Dilaudid 1 Mg/Ml Syringe IM 09/27/18 15:03 1 mg ONCE STA Administration Potassium Chloride 40 meq 09/27/18 17:07 09/27/18 17:17 K-Dur PO 09/27/18 17:08 40 meq ONCE STA Administration Promethazine HCl 50 mg 09/27/18 16:20 09/27/18 16:29 Phenergan 25 Mg/Ml Vial IM 09/27/18 16:21 50 mg ONCE STA Administration Vital Signs: Temp Pulse Resp BP Pulse Ox 09/27/18 14:35 98.7 F 91 H 18 129/77 99 Departure - Departure Time of Disposition: 17:40 Disposition: ADMITTED INPATIENT Discharge Problem: Abdominal pain Instructions: Ulcerative Colitis (ED) Condition: Good Pt referred to PMD for follow-up: Yes IPMP verified?: No Additional Instructions: Please call your Family Physician as soon as possible to schedule a follow-up appointment. Allergies/Adverse Reactions: Allergies codeine Allergy (Verified 09/27/18 14:54) Home Medications: Ambulatory Orders Sertraline HCl [Zoloft] 150 mg PO DAILY 08/26/15 Ciprofloxacin HCl [Cipro] 250 mg PO BID 09/27/18
[2018-09-27] MEDS ORDERED: SODIUM CHLORIDE 1,000 ML IV SCH (18:00)
[2018-09-27 18:35] VITALS: BMI 25.6
[2018-09-27] MEDS: AZULFIDINE PO SCH ×2 (19:38→21:36)
[2018-09-27] MEDS: FOLIC ACID PO SCH (19:38)
[2018-09-27] MEDS ORDERED: INFUVITE ADULT 10 ML in SODIUM CHLORIDE 0.9%-KCL 20 MEQ 1,000 ML IV STA (21:21)
[2018-09-28] MEDS ORDERED: OXYCODONE PO STA (04:42)
[2018-09-28] MEDS: SOLU-MEDROL 40 MG IVP SCH ×3 (04:56→21:19)
[2018-09-28] MEDS ORDERED: INFUVITE ADULT IV ONE (05:40)
[2018-09-28] MEDS ORDERED: ULTRAM PO PRN (07:58)
[2018-09-28] MEDS: FOLIC ACID PO SCH (08:08)
[2018-09-28] MEDS: AZULFIDINE PO SCH ×5 (08:08→21:19)
[2018-09-28] MEDS: ZOLOFT PO SCH (08:08)
[2018-09-28] MEDS ORDERED: LOVENOX SUBCUT SCH ×2 (18:30→21:00)
[2018-09-29] MEDS: SOLU-MEDROL 40 MG IVP SCH ×2 (05:09→13:00)
[2018-09-29] MEDS: AZULFIDINE PO SCH ×2 (08:11→13:00)
[2018-09-29] MEDS: FOLIC ACID PO SCH (08:12)
[2018-09-29] MEDS: ZOLOFT PO SCH (08:12)
[2018-09-29 13:34] VITALS: BP 104/69; TEMP 97.6
--- NOTE | 2018-10-02 13:58 | DS ---
DATE OF SERVICE: 09/29/18 PATIENT IDENTIFICATION: 43 year old female was diagnosed with ulcerative colitis by a GI specialist some 5-6 years ago and was prescribed a medication but never started the medication on account of cost. The patient claimed to have had yearly episodes of exacerbation of the problem. The recent problem began about September 07, 2018. The patient had some urinary tract infection symptoms and presented to Dr. Fung's clinic and was prescribed Cipro for the UTI and Medrol dose pack. I don't know why the Medrol Dose Pack was given. The patient claimed to have more than 6 bowel movements a day, some with blood and others none. She denied any fever. She did have some pain intermittent in the abdomen with nausea and vomiting. The patient was given Dilaudid 1mg intervenously in the emergency room producing more nausea and was controlled by 50mg of Phenergan IM. This patient is allergic to codeine. The patient's CAT scan of the abdomen and pelvic did show inflammation or thickening of the entire colon including the sigmoid. She had been diagnosed previously with ulcerative colitis but never had taken the medication. Her symptoms began September 07 and continued in spite of the Medrol Dose Pack that was given as well as Cipro intended for the urinary tract infection. The patient's CBC showed minimal leukocytosis 10,970, hgb 12.9 , plt count 266,000. Coagulation profile is normal. Chemistry: blood sugar 181.3 , normal Procalcitonin and the rest are normal. Urinalysis is normal. The patient was placed on intermittent fluids consisting of normal saline plus MVI and Sulfasalazine 500mg every 6 hours and increased to 1000mg Q 6 hours. She did receive the Decadron 10mg in the emergency room initiated and continued on Methylprednisolone 40mg intervenous every 8 hours. The patient did experience some pain in the set up worker hours of 09/28/18 but refused oxycodone for fear of allergies since she is allergic to codeine. During the daytime the patient was given Tramadol 50mg and tolerated the medication. The pain had decreased substantially and the patient was wanting to eat and was then given a regular meal. The patient on the day of discharge did eat 50% breakfast and 25% of lunch. The patient had that time denied any abdominal pain, nausea or diarrhea. She did have a greenish stool and early hours of 09/28/18. This is probably secondary to the bile. The patient remained afebrile throughout her hospital stay and her blood pressure had been stable. Her oxygen saturation remained stable at 97% at room air. Labs showed normal WBC and 8,030 to 10,530 probably because of the Methylprednisolone. Hgb and hct remained essentially unchanged. Electrolytes remained normal. creatinine was normal as well as BUN and EGFR was stable and the last one is 88cc per minute. Blood sugar gradually return towards normal although not quite normal, from 181.3 to 116.5 to 119.7. Total protein was slightly low. It was just barely normal on admission at 6.55. The Procalcitonin remained normal at 0.05 on the day of discharge 09/29/18. The patient at that time was alert, ambulatory, cheerful and wanting to go home. She claims that she does not have any abdominal pain and did not have any blood in her stool and no longer has the nausea. She does not have any genitourinary symptoms. VITAL SIGNS: Temperature 97.6, pulse 60, blood pressure 104/69, respiratory rate 18, oxygen saturation 100 at room air. LUNGS: Clear to auscultation HEART: normal sinus rhythm ABDOMEN: Soft with no remarkable tenderness. Bowel sounds are active LEGS: no tenderness. The patient is then given a prescription for Sulfasalazine 500mg tablet # 120 two tablet four times a day and Prednisone 5mg tablet twice a day. This patient is to see me next at the office and she should call the office Tuesday and see me sooner if she has any concerns or problems. FINAL DIAGNOSES: 1. Ulcerative colitis involving the entire colon with exacerbation 2. History of depression PLAN: 1. The nurse has put two medications that does not belong to this patient and no prescription was written for this patient. The Moxifloxacin belong to [facility]. Ms. Wagner promised that she would not resume smoking. TIME SPENT: GREATER THAN 30 MINUTES MTDD
--- NOTE | 2018-10-10 13:00 | HP ---
DATE OF SERVICE: 09/27/18 CHIEF COMPLAINT: Abdominal pain HISTORY OF PRESENT ILLNESS: Mrs. Wagner is a 43 year old previous patient of Dr. Patel who presented to the emergency department with complaints of abdominal pain. She reports that she was having some bloody diarrhea with some clotting. The symptoms started on September 12. She did present previously to the [facility] and was given Cipro and steroids. She did say that it helped some. She tells me that they did some blood work and her WBC was elevated. She tells me that no stools studies were completed. She tells me that she normally manages her symptoms of ulcerative colitis with diet. She tells me that most of the time her symptoms will flair up during the summer when she eats raw fruits and vegetables. She also tells me that she has not been able to purchase her medications due to financial constraints. PAST PERSONAL HISTORY: Anxiety Depression Ulcerative colitis Tubal ligation FAMILY HISTORY: Thyroid disease Lung cancer SOCIAL HISTORY: Positive for previous tobacco use stopped September 13, 2018. No report of alcohol or substance abuse. MEDICATIONS: Sertraline 150mg daily Cipro 250mg tablet twice a day ALLERGIES: Codeine REVIEW OF SYSTEMS: CONSTITUTIONAL: No reports of fever, chills. Does report approximately an 8 pound weight loss. HEENT: Does complain of a knot in her throat. I did report to her that we needed to complete a thyroid and neck ultrasound. She does defer testing for this CARDIOVASCULAR: No reports of chest pain. Regular rhythm. Orthopnea. Peripheral edema. LUNGS: No complaints of shortness of breath, cough or congestion GI: No complaints of any nausea or vomiting. Does complain of diarrhea, bloody stools and does complain of abdominal pain, diffusely. No complaints of constipation. : No complaints of dysuria, hematuria, nocturia or urine incontinence. MUSCULOSKELETAL: No reports muscle pain, no reports of joint redness or swelling. NEUROLOGICAL: No complaints of any dizziness, fatigue or any neurological deficits or lateral weakness. PSYCHOLOGICAL: Does have history of anxiety and depression. ENDOCRINE: No reports of diabetes mellitus or thyroid disease. No reports of increased thirst or urination or heat or cold intolerance. INTEGUMENTARY: No reports of any usual rashes or skin lesions. PHYSICAL EXAMINATION: GENERAL: She is alert and oriented in no acute distress. VITAL SIGNS: Temperature 98.7, pulse rate 91, blood pressure 129/77, respiratory rate 18, O2 saturation 99% on room air. HEAD: Normal cephalic. Atraumatic. EYES: Pupils equal/reactive to light. Conjunctivae not pale. Sclerae not icteric. Mucus membrane are moist. THROAT: No inflammation, tumors or exudate. NECK: No masses. No bruit. No tenderness. No rigidity. No Lymphadenopathy. Supple. No thyromegaly LUNGS: Clear. Respiratory effort normal. HEART: S1, S2. Regular rate and rhythm. No peripheral edema. No JVD. Audible and regular with good tones. No murmurs. ABDOMEN: Soft. Bowel sounds are positive. Nontender. NEUROLOGICAL: Cranial nerves II through XII are grossly intact. SKIN: Warm and dry. No advert lesions noted. LABS/DIAGNOSTIC TESTING: WBC 10.97, hgb 12.9, hct 36.2, plt count 166. Chemistry panel; sodium 137.3, potassium low at 2.48, BUN 6.6, creatinine 0.83, Amylase and Lipase normal. Procalcitonin less than 0.05. Urinalysis negative. ASSESSMENT: 1. Ulcerative colitis with abdominal pain and bloody stools 2. Hypokalemia 3. Anxiety/Depression 4. Dysphagia with feeling of a knot in her throat PLAN: 1. Start IV fluids 2. Resume home medications 3. The patient was given IV Methylprednisone. 4. Started on Sulfasalazine 500mg QID 5. Give replacement on Potassium 6. Started on Lovenox for DVT prophylaxis 7. The patient defers thyroid ultrasound and she defers a neck ultrasound to further evaluate the dysphagia. Further orders and recommendations per Dr. Lieberman. TIME SPENT: GREATER THAN 65 MINUTES MTDD
--- NOTE | 2018-11-17 15:29 | PN ---
DATE OF SERVICE: 09/28/18 SUBJECTIVE: This patient was admitted 09/27/18 because of abdominal pain, diarrhea with/ without blood, nausea and vomiting. The problem began about September 07. She had been to urgent clinic run by Dr. Fung and was prescribed Cipro for UTI, Medrol dose pack. The patient on presentation to the emergency room had the following investigations done, CBC with leukocytosis 10,970, Chemistry sugar 181, GFR 89, procalcitonin less than 0.05, serum amylase and lipase normal, liver enzymes normal. Urinalysis was normal. CAT scan of the abdomen and pelvis done showed inflammatory changes of the right side of the colon transverse and left descending colon and sigmoid. The radiologist labeled it as colitis. This patient was diagnosed with ulcerative colitis some five years ago or more and was prescribed medication but the patient never filled the prescriptions because it was expensive. She claimed that she had a yearly exacerbation of the problem but this last one was more severe prompting her to come to the emergency room. The patient does not have any insurance. The patient was given Dilaudid 1 mg intravenously in the emergency room and developed nausea and was given Phenergan 50 mg IM to control the nausea. The patient did ask for pain medication about 4 o'clock in the morning and I was contacted and ordered Oxycodone IR, however, the patient refused the medication because of her allergy to codeine. The patient used the Oxycodone and so by 7 o'clock in the morning the nurse during the daytime had discussed the case again and decided to give her Tramadol 50 mg Q six hours PRN. The pain had subsided with the treatment of Sulfasalazine 500 mg QID and increased to 1,000 mg QID and Methylprednisolone 40 mg intravenously Q 8 hours. She was given Decadron initially in the emergency room IM. The patient was given normal saline 75 cc per hour. The patient was continued on her home medication of Zoloft 150 mg daily. This patient claimed that she was reducing her Zoloft to 1/2 since she needed to extend the prescription because of cost. During this hospitalization she also received Lovenox 40 mg subcutaneously. was added to the intravenous fluids with electrolytes. The patient's vital signs on 09/28/18 at 2 :00 p.m. showed a temperature of 98.1, pulse 70, blood pressure 100/64, respiratory rate 18, oxygen saturation 97 at room air. Lungs were clear to auscultation. Heart was normal sinus rhythm. Abdomen still some tenderness on palpation but no muscular guarding, bowel sounds are slightly hyperactive. The patient had a greenish bowel movement which is probably mostly bile. The patient's diet was advanced to regular. This patient has responded very well to Sulfasalazine as well as the Methylprednisolone and will continue this medication for now. MTDD
== END 2018-09-29 15:32 | disposition home or self-care (01) | DRG 386 ==
LOC: ED 14:33 → MEDSURG B 17:45
PROVIDERS: ADMIT General Practice; ATTEND General Practice
DX: R19.7 Diarrhea, unspecified; F32.9 Major depressive disorder, single episode, unspecified; K51.90 Ulcerative colitis, unspecified, without complications; K62.5 Hemorrhage of anus and rectum